=== PATIENT | male | born 1990 | race Hispanic/Latino ===

== ENCOUNTER 2018-04-25 20:59 | Emergency (ER) | payer SELFPAY ==
[2018-04-25 21:41] LABS: Absolute Monocytes 0.8 K/uL (0.1-1.3); Absolute Neutrophil 13.7 K/uL (1.8-8.0); Basophils % 0.3 % (0-1.3); Eosinophils % 0.9 % (0-4.4); Hematocrit 42.5 % (39.6-49.0); Lymphocytes % 12.2 % (15.3-44.8); MCH 28.9 pg (27.0-35.0); MCV 86.4 fL (80-100); Monocytes % 4.7 % (3.3-12.3); RBC Red Blood Cell Count 4.92 M/uL (4.33-5.43)
--- NOTE | 2018-04-25 21:51 | RAD REPORT ---
EXAM DESCRIPTION: CT - Chest For Pe Angio - 04/25/2018 9:35 pm CLINICAL HISTORY: hemoptysis, tachypnea COMPARISON: None. TECHNIQUE: Dynamically enhanced axial 3 mm thick images of the chest were obtained during administra tion of <100> mL Isovue 370 IV contrast. Coronal and oblique reconstruction images were generated and reviewed. Exam utilizes a protocol for optimal evaluation of pulmonary arterial tree. Maximum intensity projections 3D imaging was utilized All CT scans are performed using dose optimization technique as appropriate and may include automated exposure control or mA/KV adjustment according to patient size. FINDINGS: The opacification of the pulmonary arteries is is suboptimal. A central pulmonary embolus is not seen. A thoracic aortic aneurysm is not noted. A pleural effusion is not seen. A pericardial effusion is not seen. A lung consolidation is not present. IMPRESSION: No gross evidence for pulmonary embolus
[2018-04-25] MEDS ORDERED: NA CHLORIDE 0.9% 1,000 ML ONE (21:52)
--- NOTE | 2018-04-25 21:53 | RAD REPORT ---
EXAM DESCRIPTION: Mani Castro (2 Views)04/25/2018 9:44 pm CLINICAL HISTORY: Cough COMPARISON: None FINDINGS: The lungs appear clear of acute infiltrate. The heart is normal size IMPRESSION: No acute abnormalities displayed
[2018-04-25 21:58] LABS: Potassium 3.7 mmol/L (3.5-5.1)
[2018-04-25] MEDS ORDERED: ALBUTEROL 2.5 MG/3 ML NEB SOL ONE (22:27)
--- NOTE | 2018-04-25 23:04 | EDPHYS ---
Physician Documentation [facility] Name: Dane Faulkner Age: 27 yrs Sex: Male : 1990 Arrival Date: 04/25/2018 Time: 21:03 Bed 24 Private MD: ED Physician Bijan Fitzgerald HPI: 04/25 22:24 This 27 yrs old Male presents to ER via Ambulatory with complaints of Cough, snw Fever, Headache, Breathing Difficulty. 22:24 The patient or guardian reports airway noise, cough. Onset: The symptoms/episode snw began/occurred gradually. Severity of symptoms: At their worst the symptoms were moderate. Associated signs and symptoms: Pertinent positives: chest pain, cough, a few times with bloody sputum, started with fever today, this patient has no pertinent positive symptoms. The patient has not experienced similar symptoms in the past. The patient has not recently seen a physician. Historical: - Allergies: 21:07 No Known Allergies; la1 - PMHx: 21:07 Hypertension; la1 - Immunization history:: Adult Immunizations up to date. - Social history:: Smoking status: Patient/guardian denies using tobacco. - Ebola Screening: : No symptoms or risks identified at this time. ROS: 22:22 Eyes: Negative for injury, pain, redness, and discharge, ENT: Negative for injury, snw pain, and discharge, Neck: Negative for injury, pain, and swelling, Cardiovascular: Negative for chest pain, palpitations, and edema, Abdomen/GI: Negative for abdominal pain, nausea, vomiting, diarrhea, and constipation, Back: Negative for injury and pain, : Negative for injury, bleeding, discharge, and swelling, MS/Extremity: Negative for injury and deformity, Skin: Negative for injury, rash, and discoloration, Neuro: Negative for headache, weakness, numbness, tingling, and seizure. 22:22 Constitutional: Positive for fever, malaise. 22:22 Respiratory: Positive for cough, with no reported sputum, pt states he has been coughing x 2 months but started with 101.6 fever today. Exam: 22:20 Constitutional: This is a well developed, well nourished patient who is awake, alert, snw and in no acute distress. Head/Face: Normocephalic, atraumatic. Eyes: Pupils equal round and reactive to light, extra-ocular motions intact. Lids and lashes normal. Conjunctiva and sclera are non-icteric and not injected. Cornea within normal limits. Periorbital areas with no swelling, redness, or edema. ENT: Nares patent. No nasal discharge, no septal abnormalities noted. Tympanic membranes are normal and external auditory canals are clear. Oropharynx with no redness, swelling, or masses, exudates, or evidence of obstruction, uvula midline. Mucous membranes moist. Neck: Trachea midline, no thyromegaly or masses palpated, and no cervical lymphadenopathy. Supple, full range of motion without nuchal rigidity, or vertebral point tenderness. No Meningismus. Chest/axilla: Normal chest wall appearance and motion. Nontender with no deformity. No lesions are appreciated. 22:20 Abdomen/GI: Soft, non-tender, with normal bowel sounds. No distension or tympany. No guarding or rebound. No evidence of tenderness throughout. Back: No spinal tenderness. No costovertebral tenderness. Full range of motion. Skin: Warm, damp skin with normal turgor. Normal color with no rashes, no lesions, and no evidence of cellulitis. MS/ Extremity: Pulses equal, no cyanosis. Neurovascular intact. Full, normal range of motion. Neuro: Awake and alert, GCS 15, oriented to person, place, time, and situation. Cranial nerves II-XII grossly intact. Motor strength 5/5 in all extremities. Sensory grossly intact. Cerebellar exam normal. Normal gait. 22:20 Cardiovascular: Rate: tachycardic, Rhythm: regular, Heart sounds: normal. 22:20 Respiratory: the patient does not display signs of respiratory distress, Respirations: normal, Breath sounds: are clear throughout. Vital Signs: 21:08 BP 166 / 90; Pulse 118; Resp 22; Temp 97.8(TE); Pulse Ox 97% on R/A; Weight 181.44 kg; la1 Height 6 ft. 4 in. (193.04 cm); 22:30 BP 140 / 83; Pulse 96; Resp 20; Pulse Ox 97% on R/A; kr2 23:12 BP 138 / 61; Pulse 90; Resp 18; Pulse Ox 99% on R/A; kr2 21:08 Body Mass Index 48.69 (181.44 kg, 193.04 cm) la1 MDM: 21:16 Patient medically screened. snw 23:04 Data reviewed: vital signs, nurses notes. Data interpreted: Pulse oximetry: on room air snw is 97 %. Interpretation: normal. Counseling: I had a detailed discussion with the patient and/or guardian regarding: the historical points, exam findings, and any diagnostic results supporting the discharge/admit diagnosis, the presence of at least one elevated blood pressure reading (>120/80) during this emergency department visit, lab results, radiology results, the need for outpatient follow up, to return to the emergency department if symptoms worsen or persist or if there are any questions or concerns that arise at home. Special discussion: I have referred the patient to see his PCP for further evaluation of high blood pressure. Based on the history and exam findings, there is no indication for further emergent testing or inpatient evaluation. I discussed with the patient/guardian the need to see the primary care provider for further evaluation of the symptoms. 04/25 21:05 Order name: Flu; Complete Time: 22:00 snw 04/25 21:13 Order name: CBC with Diff; Complete Time: 21:44 snw 04/25 21:11 Order name: Chest Pa And Lat (2 Views) XRAY; Complete Time: 22:00 snw 04/25 21:13 Order name: Chem 7; Complete Time: 22:00 snw 04/25 21:13 Order name: Blood Culture* snw 04/25 21:13 Order name: CT Chest For PE Angio; Complete Time: 22:00 snw 04/25 21:11 Order name: Misc. Order: mask pt; Complete Time: 21:24 snw Administered Medications: 10:43 Drug: Rocephin 1 grams Route: IV; Rate: calculated rate; Site: right antecubital; kr2 22:48 Follow up: Response: No adverse reaction; IV Status: Completed infusion kr2 21:54 Drug: NS 0.9% 1000 ml Route: IV; Rate: 1 bolus; Site: right antecubital; kr2 23:12 Follow up: Response: No adverse reaction; IV Status: Completed infusion kr2 22:23 Drug: Albuterol 2.5 mg Route: Inhalation; kr2 22:47 Follow up: Response: No adverse reaction kr2 22:24 Drug: TORadol 30 mg Route: IVP; Site: right antecubital; kr2 22:47 Follow up: Response: No adverse reaction; Pain is decreased kr2 Disposition: 23:16 Co-signature as Attending Physician, Bijan Fitzgerald MD. anibal Disposition: 04/25/18 23:03 Discharged to Home. Impression: Bronchitis, not specified as acute or chronic. - Condition is Stable. - Discharge Instructions: Acute Bronchitis, Adult, Hypertension, How to Use an Inhaler, Cool Mist Vaporizer. - Prescriptions for Tessalon Perles 100 mg Oral Capsule - take 1 capsule by ORAL route every 8 hours As needed; 15 capsule. Zithromax Z- Azeem 250 mg Oral Tablet - take 1 tablet by ORAL route as directed for 5 days Day 1 - take two (2) tablets one time. Day 2, 3, 4 , 5 take one (1) tablet once daily.; 6 tablet. Albuterol Sulfate 90 mcg/actuation - inhale 1-2 puff by INHALATION route every 4-6 hours; 1 Inhaler. - Work release form, Medication Reconciliation Form, Thank You Letter, Antibiotic Education, Prescription Opioid Use form. - Follow up: Private Physician; When: 2 - 3 days; Reason: Recheck today's complaints, Continuance of care, Re-evaluation by your physician. Follow up: Emergency Department; When: As needed; Reason: Worsening of condition. Signatures: Dispatcher [employer] Bijan Magana MD MD pkl Therrien, Shelly, MICROBIOLOGY PROFESSOR-C MICROBIOLOGY PROFESSOR-Csnw Walter Scales RN RN [email or web address] Jannette Leal RN RN kr2 Corrections: (The following items were deleted from the chart) 23:13 23:03 04/25/2018 23:03 Discharged to Home. Impression: Bronchitis, not specified as kr2 acute or chronic. Condition is Stable. Forms are Medication Reconciliation Form, Thank You Letter, Antibiotic Education, Prescription Opioid Use. Follow up: Private Physician; When: 2 - 3 days; Reason: Recheck today's complaints, Continuance of care, Re-evaluation by your physician. Follow up: Emergency Department; When: As needed; Reason: Worsening of condition. snw
--- NOTE | 2018-04-25 23:04 | ER ---
Nurse's Notes [facility] Name: Dane Faulkner Age: 27 yrs Sex: Male : 1990 Arrival Date: 04/25/2018 Time: 21:03 Bed 24 Private MD: Diagnosis: Bronchitis, not specified as acute or chronic Presentation: 04/25 21:05 Presenting complaint: Patient states: I have had a cough for 2 months but today I la1 started running fever and getting more SOB. Pt also reports blood in sputum 2 or 3 times. Transition of care: patient was not received from another setting of care. Onset of symptoms was April 25, 2018. Risk Assessment: Do you want to hurt yourself or someone else? Patient reports no desire to harm self or others. Initial Sepsis Screen: Does the patient meet any 2 criteria? Does the patient have a suspected source of infection? No. Patient's initial sepsis screen is negative. Care prior to arrival: None. 21:05 Method Of Arrival: Ambulatory la1 21:05 Acuity: MARIAN 3 la1 Triage Assessment: 21:15 Headache History: The patient has had previous headaches and this one is similar to kr2 previous episodes. General: Appears in no apparent distress. General: Behavior is cooperative, anxious. Pain: Pain: Complains of pain in head, face Pain does not radiate. Pain currently is 5 out of 10 on a pain scale. Quality of pain is described as aching, Pain began gradually, Is continuous, Alleviated by nothing. Also complains of nausea. Historical: - Allergies: 21:07 No Known Allergies; la1 - PMHx: 21:07 Hypertension; la1 - Immunization history:: Adult Immunizations up to date. - Social history:: Smoking status: Patient/guardian denies using tobacco. - Ebola Screening: : No symptoms or risks identified at this time. Screenin:15 Abuse screen: Denies threats or abuse. Denies injuries from another. Nutritional kr2 screening: No deficits noted. Tuberculosis screening: No symptoms or risk factors identified. Fall Risk None identified. Assessment: 21:15 General: Appears in no apparent distress. uncomfortable, obese, well groomed, Behavior kr2 is cooperative, appropriate for age, anxious. Pain: Complains of pain in head, face Pain does not radiate. Pain currently is 5 out of 10 on a pain scale. Quality of pain is described as aching, Is continuous, Alleviated by nothing. Neuro: Level of Consciousness is awake, alert, obeys commands, Oriented to person, place, time, situation, Appropriate for age Project Management Professor are equal bilaterally Moves all extremities. Gait is steady, Speech is normal, Facial symmetry appears normal, Pupils are PERRLA, Intact. Cardiovascular: Capillary refill < 3 seconds in bilateral fingers Patient's skin is warm and dry. Respiratory: Airway is patent Respiratory effort is even, unlabored, Respiratory pattern is regular, symmetrical, Breath sounds are clear bilaterally. Respiratory: Reports cough that is productive, persistent off and on for the past month and one month ago he coughed up a small amount of blood. GI: Abdomen is non-distended, obese. EENT: Nares are clear bilaterally Oral mucosa is moist. Throat is clear. Derm: Skin is intact, is healthy with good turgor, Skin is pink, warm \T\ dry. Musculoskeletal: Circulation, motion, and sensation intact. 22:34 Reassessment: Patient appears in no apparent distress at this time. Patient and/or kr2 family updated on plan of care and expected duration. Pain level reassessed. Patient is alert, oriented x 3, equal unlabored respirations, skin warm/dry/pink. 22:48 Reassessment: Patient appears in no apparent distress at this time. Patient and/or kr2 family updated on plan of care and expected duration. Pain level reassessed. Patient is alert, oriented x 3, equal unlabored respirations, skin warm/dry/pink. Patient denies pain at this time. Patient states feeling better. Patient states symptoms have improved. Vital Signs: 21:08 BP 166 / 90; Pulse 118; Resp 22; Temp 97.8(TE); Pulse Ox 97% on R/A; Weight 181.44 kg; la1 Height 6 ft. 4 in. (193.04 cm); 22:30 BP 140 / 83; Pulse 96; Resp 20; Pulse Ox 97% on R/A; kr2 23:12 BP 138 / 61; Pulse 90; Resp 18; Pulse Ox 99% on R/A; kr2 21:08 Body Mass Index 48.69 (181.44 kg, 193.04 cm) la1 ED Course: 21:03 Patient arrived in ED. es 21:07 Triage completed. la1 21:08 Arm band placed on right wrist. la1 21:10 Josephine Raphael, [facility] snw 21:10 Bijan Fitzgerald MD is Attending Physician. snw 21:12 Jannette Leal, JULIO is Primary Nurse. kr2 21:15 Patient has correct armband on for positive identification. Bed in low position. Call kr2 light in reach. Side rails up X 1. Adult w/ patient. Pulse ox on. NIBP on. Door closed. Head of bed elevated. 21:30 Inserted saline lock: 20 gauge in right antecubital area, using aseptic technique. rv Blood collected. 21:30 Initial lab(s) drawn, by me, sent to lab. First set of blood cultures drawn by me. rv 21:35 CT completed. Patient tolerated procedure well. Patient moved to radiology. bq 21:36 CT Chest For PE Angio In Process Unspecified. EDMS 21:43 X-ray completed. Patient tolerated procedure well. Patient moved back from radiology. mh1 21:44 Chest Pa And Lat (2 Views) XRAY In Process Unspecified. EDMS 23:11 No provider procedures requiring assistance completed. IV discontinued, intact, kr2 bleeding controlled, No redness/swelling at site. Pressure dressing applied. Administered Medications: 10:43 Drug: Rocephin 1 grams Route: IV; Rate: calculated rate; Site: right antecubital; kr2 22:48 Follow up: Response: No adverse reaction; IV Status: Completed infusion kr2 21:54 Drug: NS 0.9% 1000 ml Route: IV; Rate: 1 bolus; Site: right antecubital; kr2 23:12 Follow up: Response: No adverse reaction; IV Status: Completed infusion kr2 22:23 Drug: Albuterol 2.5 mg Route: Inhalation; kr2 22:47 Follow up: Response: No adverse reaction kr2 22:24 Drug: TORadol 30 mg Route: IVP; Site: right antecubital; kr2 22:47 Follow up: Response: No adverse reaction; Pain is decreased kr2 Outcome: 23:03 Discharge ordered by . snw 23:11 Discharged to home ambulatory, with family. kr2 23:11 Condition: good 23:11 Discharge instructions given to patient, family, Instructed on discharge instructions, follow up and referral plans. medication usage, Demonstrated understanding of instructions, follow-up care, medications, Prescriptions given X 3. 23:13 Patient left the ED. kr2 Signatures: Dispatcher [employer] EDJosephine Mulligan, EXPENDITURE REQUISITION CLERK-C EXPENDITURE REQUISITION CLERK-Csnw Peyton Taylor Martha 1 Kendal Wilks Lee, RN RN la1 Jannette Leal RN RN kr2 Roney Everett RN RN rv Corrections: (The following items were deleted from the chart) 22:34 21:15 Respiratory: Reports cough that is productive, persistent kr2 kr2
== END 2018-04-25 23:13 | disposition home or self-care (01) ==
LOC: ER 20:59
DX: J40 Bronchitis, not specified as acute or chronic (principal); I10 Essential (primary) hypertension
CPT/HCPCS: 36415; 71046; 71275; 80048; 85025; 87040; 87804; 96365; 96366; 96375; 99284; J7030; Q9967